=== PATIENT | male | born 1995 | race Caucasian/White ===

== ENCOUNTER 2017-02-28 19:00 | Emergency (ER) | payer OTHER ==
[2017-02-28 19:23] VITALS: BP 113/56; PULSE 57; RESP 16; TEMP 98.4; O2SAT 96
[2017-02-28] MEDS ORDERED: PROPARACAINE 0.5% 15 ML OPHT DROP OP ONE (19:48)
[2017-02-28] MEDS ORDERED: FLUORESCEIN SODIUM 1 MG STRIP OP ONE (19:48)
--- NOTE | 2017-02-28 20:14 | EDPHY ---
H & P Time Seen by Provider: 02/28/17 19:48 HPI/ROS: CHIEF COMPLAINT: Contact lens stuck in eye HISTORY OF PRESENT ILLNESS: 22-year-old male contact lens wear complaining of contact lens stuck in his right eye for the past 2 weeks. States that 2 weeks ago he ripped his contact lens consultation is pending in a contact lens he fell a piece of contact lens like material he could not remove. PHYSICAL EXAM (Prior to examination, patient consented to physical exam, hands were washed and my usual and customary physical exam procedures followed) 1) GENERAL: Well-developed, well-nourished, alert and oriented. Appears to be in no acute distress. 2) HEAD: Normocephalic 3) ENT: sclera anicteric 4) LUNGS: Breathing comfortably. 5) OCULAR EXAM: Visual Acuity: noted from Nurse's notes. Pupils:equal round and reactive to light EOMI Lids: no edema or swelling, upper and lower lids were everted and no foreign bodies were visualized, no areas of increased fluorescein uptake. Skin: no proptosis, no periorbital erythema or swelling, no vesicles, no pain with extraocular movements. Conjunctivae: not injected, no discharge, negative Hernando test. Cornea: exam with fluorescein showsno areas of increased uptake, no laceration, no abrasion Anterior chamber:[normal, no hyphema or hypopyon Smoking Status: Current some day smoker Constitutional: Initial Vital Signs Temperature (C) 36.9 C 02/28/17 19:19 Heart Rate 57 L 02/28/17 19:19 Respiratory Rate 16 02/28/17 19:19 Blood Pressure 113/56 L 02/28/17 19:19 O2 Sat (%) 96 02/28/17 19:19 O2 Delivery Mode Room Air Allergies/Adverse Reactions: No Known Allergies Allergy (Unverified 02/28/17 19:19) Home Medications: Medication Instructions Recorded NK [No Known Home Meds] 02/28/17 MDM/Departure - [facility] ED Course/Re-evaluation: This patient has no visible foreign body, no corneal abrasion, no ulceration, no area of increased uptake. He specifically asks me to touch the area he has been palpating and he has been pulling on the membranous scleral aspect. He has been informed that small retained contact lens cannot be fully ruled out other this point do not visualize any foreign bodies. Recommend ophthalmology follow-up. He is agreeable with this plan. Care of patient under supervision of secondary supervising physician Dr Rosales . - Depart Disposition: Home, Routine, Self-Care Clinical Impression: Contact lens stuck Condition: Good Instructions: Eye Foreign Body (ED) Referrals: Adolfo Hubbard MD [Medical Doctor] - 1-2 days without fail
== END 2017-02-28 20:33 | disposition home or self-care (01) ==
DX: H18.829 Corneal disorder due to contact lens, unspecified eye (principal); F17.200 Nicotine dependence, unspecified, uncomplicated